=== PATIENT | female | born 1990 | race Caucasian/White ===

== ENCOUNTER 2020-05-11 13:47 | Emergency (ER) | payer OTHER ==
[~2020-05-11] VITALS: Ht 165.1 cm; Wt 68.0 kg
[2020-05-11 13:53] VITALS: BP 127/88
--- NOTE | 2020-05-11 14:44 | NUR ---
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
[2020-05-11] MEDS ORDERED: ACETAMINOPHEN ES 500 MG TABLET ONE (14:45)
[2020-05-11] MEDS: ACETAMINOPHEN ES 500 MG TABLET PO ONE (14:57)
--- NOTE | 2020-05-11 15:35 | NUR ---
Patient discharged in custody od [employer] [place] in stable condition of [facility]. Written and verbal after care instructions given. [employer] and patient verbalizes understanding of instruction. Sling will be provided in the [facility] clinic.
== END 2020-05-11 15:42 ==
LOC: ER 13:50
DX: S53.491A Other sprain of right elbow, initial encounter (principal); S80.02XA Contusion of left knee, initial encounter; S80.01XA Contusion of right knee, initial encounter; M54.6 Pain in thoracic spine; M54.2 Cervicalgia; Y08.89XA Assault by other specified means, initial encounter; Y93.89 Activity, other specified; Y92.89 Other specified places as the place of occurrence of the external cause; Y99.8 Other external cause status
CPT/HCPCS: 72070-TC; 73080-TC